=== PATIENT | male | born 1990 | race American Indian/Alaskan Native ===

== ENCOUNTER 2018-09-28 15:30 | Emergency (ER) | payer MEDICAID ==
--- NOTE | 2018-09-28 15:52 | Emergency Department Report ---
Blank Doc - Documentation Documentation: This is a 28-year-old male that presents with right foot/ankle pain and swelli ng. Unknown if injuries. This initial assessment/diagnostic orders/clinical plan/treatment(s) is/are subject to change based on patient's health status, clinical progression and re- assessment by fellow clinical providers in the ED. Further treatment and workup at subsequent clinical providers discretion. Patient/guardians urged not to elope from the ED as their condition may be serious if not clinically assessed and managed. Initial orders include: 1- Patient sent to [facility] for further evaluation and treatment 2- xrays
[2018-09-28 15:54] VITALS: BP 157/75
[2018-09-28] MEDS ORDERED: PERCOCET 5/325 PO ONE (16:17)
--- NOTE | 2018-09-28 16:19 | Emergency Department Report ---
HPI - General Chief Complaint: Extremity Injury, Lower Time Seen by Provider: 09/28/18 15:50 - HPI HPI: She was a pleasant 28-year-old male who is brought to the ER by his family today complaining of right foot pain and swelling. Patient denies any trauma. Patient was seen by his primary care today who told him that it was less likely an insect bite and that he should follow up next week. The family reports that the swelling has been increasing since Tuesday. The patient has autism and ADHD and is on medications for that. The family does not recall the names of the medicines. The patient denies shortness of breath or chest pain. Patient is normally active without mobility issues. [id number]-esz-[id number] meds have failed to alleviate the redness and swelling. The family is unable to identify any causative factor or anything that's making the symptoms diminish ED Past Medical Hx - Past Medical History Previous Medical History?: Yes Additional medical history: autism/adhd - Surgical History Past Surgical History?: No - Family History Family history: no significant - Social History Smoking Status: Never Smoker Substance Use Type: None - Medications Home Medications: Home Medications Medication Instructions Recorded Confirmed Last Taken Type Clindamycin [Clindamycin CAP] 150 mg PO Q6HR #40 capsule 09/28/18 Unknown Rx ED Review of Systems ROS: Stated complaint: SWELLING LEG/FOOT Other details as noted in HPI Comment: All other systems reviewed and negative Physical Exam - Physical Exam Vital Signs: Vital Signs 09/28/18 15:50 Temperature 98.2 F Pulse Rate 118 H Respiratory 20 Rate Blood Pressure 157/75 Blood Pressure 157/75 [Left] O2 Sat by Pulse 97 Oximetry Physical Exam: - Head Head exam: Present: atraumatic, normocephalic - Eye Eye exam: Present: normal appearance, EOMI. Absent: nystagmus - ENT ENT exam: Present: normal exam, normal orophraynx, mucous membranes moist, normal external ear exam, no lymphadenopathy - Neck Neck exam: Present: normal inspection, full ROM. Absent: tenderness, meningismus - Respiratory Respiratory exam: Present: normal lung sounds bilaterally. Absent: respiratory distress, wheezes, rales, rhonchi, stridor, chest wall tenderness, accessory muscle use, decreased breath sounds, prolonged expiratory - Cardiovascular Cardiovascular Exam: Present: regular rate, normal rhythm, normal heart sounds. HR 100 on my exam. Pt is on ADHD meds but the family can not remember the name of the med. Absent: bradycardia, irregular rhythm, systolic murmur, diastolic murmur, rubs, gallop, JVD - GI/Abdominal GI/Abdominal exam: Present: soft, non tender on light and deep palpation. Absent: distended, tenderness, guarding, rebound, rigid, pulsatile mass - Rectal Rectal exam: Present: deferred - Extremities Exam Extremities exam: Present: normal inspection, full ROM, other (2+ pulses noted in the bilateral upper extremities. Bilateral lower extremities with 2+ DP bilateral. Full ROM. Absent: calf tenderness. The LLE is red from about mid calf down. Neg homans. neurovasc intact. rapid cap refill. no open skin noted. no dr borja. warm to touch. - Back Exam Back exam: Present: normal inspection, full ROM. Absent: tenderness, CVA tenderness (R), CVA tenderness (L), paraspinal tenderness, vertebral tenderness - Neurological Exam Neurological exam: Present: alert, oriented X3, normal gait, other (Extraocular movements intact. Tongue midline. No facial droop. Facial sensation intact to light touch in the V1, V2, V3 distribution bilaterally. 5 and 5 strength in 4 extremities.. Sensation is intact to light touch in 4 extremities.). Absent: motor sensory deficit - Psychiatric Psychiatric exam: autism; MR - Skin Skin exam: Present: warm, dry, intact, normal color. Absent: rash ED Course Vital Signs 09/28/18 15:50 Temperature 98.2 F Pulse Rate 118 H Respiratory 20 Rate Blood Pressure 157/75 Blood Pressure 157/75 [Left] O2 Sat by Pulse 97 Oximetry ED Medical Decision Making - Lab Data Result diagrams: 09/28/18 16:23 09/28/18 16:23 - Radiology Data Radiology results: report reviewed, image reviewed - Medical Decision Making Labs 09/28/18 09/28/18 16:23 16:23 WBC 14.2 H RBC 4.66 Hgb 14.4 Hct 41.9 MCV 90 MCH 31 MCHC 34 RDW 15.0 Plt Count 199 Sodium 134 L Potassium 3.6 Chloride 95.0 L Carbon Dioxide 25 Anion Gap 18 BUN 11 Creatinine 0.8 Estimated GFR > 60 BUN/Creatinine Ratio 14 Glucose 143 H Calcium 9.2 Vital Signs 09/28/18 15:50 Temperature 98.2 F Pulse Rate 118 H Respiratory 20 Rate Blood Pressure 157/75 Blood Pressure 157/75 [Left] O2 Sat by Pulse 97 Oximetry us noted labs noted medicated for cellulitis and pain family and pt updated on plan of care. VSS no fever non toxic taking po ambulatory Will dc home with dc plan of care and PCP follow up and reevaluation. - Differential Diagnosis ro dvt v cellulitis Critical care attestation.: If time is entered above; I have spent that time in minutes in the direct care of this critically ill patient, excluding procedure time. ED Disposition Clinical Impression: Cellulitis, leg Disposition: DC-01 TO HOME OR SELFCARE Is pt being admited?: No Does the pt Need Aspirin: No Condition: Stable Instructions: Cellulitis (ED) Additional Instructions: DIET TOLERATED MOTRIN OR TYLENOL FOR PAIN OR FEVER RETURN TO THE ER FOR WORSENING SYMPTOMS NOT RELIEVED BY YOUR MEDICATIONS. WARM COMPRESSES REST ELEVATE MED ORDERED TODAY RECHECK BY PCP ON TUESDAY LET THEM KNOW THE ULTRASOUND WAS NEG FOR DVT BUT YOUR WBC WAS 14 Prescriptions: Clindamycin [Clindamycin CAP] 150 mg PO Q6HR #40 capsule Referrals: [facility] [Outside] - 3-5 Days Time of Disposition: 17:06
[2018-09-28 16:42] LABS: Hematocrit 41.9 % (35.5-45.6); Hemoglobin 14.4 gm/dl (11.8-15.2); Mean Corpuscular HGB Conc 34 % (32-34); Mean Corpuscular Volume 90 fl (84-94); Platelet Count 199 K/mm3 (140-440); Red Blood Count 4.66 M/mm3 (3.65-5.03)
[2018-09-28] MEDS ORDERED: ROCEPHIN/NS 1 GM/50 ML 1 GM/50 ML BAG IV ONE (16:50)
[2018-09-28] MEDS ORDERED: IBUPROFEN PO ONE (17:06)
--- NOTE | 2018-09-28 17:06 | Vascular Lab Report ---
PROCEDURE: VL VENOUS DUPLEX LE RT TECHNIQUE: Duplex Doppler sonography of the right lower extremity. House scale imaging with and witho ut compression, spectral waveform analysis with and without augmentation, and color flow Doppler were employed. HISTORY: pain rle with swelling COMPARISONS: None FINDINGS: Deep Venous Thrombus: None Superficial Venous Thrombus: None Venous valvular incompetence: None Soft tissue abnormality: Mildly prominent benign-appearing lymph node with fat density center visual ized in the right groin measuring 2 cm x 1.1 cm. IMPRESSION: No evidence of deep venous thrombosis This document is electronically signed by Mark Moeller MD., Sep 28 2018 05:04:48 PM ET
[2018-09-28 17:09] LABS: BUN/Creatinine Ratio 14; Blood Urea Nitrogen 11 mg/dL (9-20); Calcium 9.2 mg/dL (8.4-10.2); Hemolysis Index 11
--- NOTE | 2018-09-28 18:23 | Ultrasound Report ---
PROCEDURE: Right calf ultrasound. TECHNIQUE: Real-time imaging of the right calf was performed. HISTORY: Swelling and pain below knee of right leg. COMPARISONS: None. FINDINGS: There are no definite abnormal soft tissue masses. There are no fluid collections. There is some josh a fluid noted. IMPRESSION: Edema. No focal masses. This document is electronically signed by Morgan Esparza MD., Sep 28 2018 06:21:07 PM ET
== END 2018-09-28 18:27 | disposition home or self-care (01) ==
LOC: ED 15:30
DX: L03.115 Cellulitis of right lower limb (principal)
CPT/HCPCS: 36415; 76882; 80048; 85027; 93971; 96365; 99284; J0696